=== PATIENT | male | born 1980 | race Caucasian/White ===

== ENCOUNTER 2019-01-08 09:40 | Emergency (ER) | payer BC ==
[2019-01-08] MEDS ORDERED: NS 0.9% 1000 ML** 1,000 ML IV ONE (10:01)
--- NOTE | 2019-01-08 10:04 | ED ---
Complex/Multi-Sys Presentation - HPI Summary HPI Summary: The pt is a 38 yr old male presenting to [facility] c/o fever and cough beginning 2 days [employer]. He states that he feels like he got hit by a truck and had a fever of 101.8 F last night. He has had several colds recently and was diagnosed with walking pneumonia several days [employer] and was given Zithromax. He has not been feeling well for the past couple of months. He rates his current pain severity a 3/10. No aggravating or alleviating factors noted. He also reports left testicle enlargement and tenderness, and diaphoresis but denies any rhinnorhea, penile discharge, or burning. He does not smoke or use recreational drugs, but occasionally drinks beer. He is but states that he is not very sexually active. - History Of Current Complaint Chief Complaint: EDGeneral Time Seen by Provider: 01/08/19 09:53 Hx Obtained From: Patient Onset/Duration: Sudden Onset, Lasting Days, Still Present Timing: Constant, Days Severity Currently: Mild Severity Initially: Mild Aggravating Factor(s): nothing Alleviating Factor(s): nothing Associated Signs And Symptoms: Positive: Cough, Fever, Diaphoresis, Other - pos - left testicle enlargement and tenderness, neg - burning, penile discharge, rhinnorhea - Allergies/Home Medications Allergies/Adverse Reactions: Allergies Allergy/AdvReac Type Severity Reaction Status Date / Time Penicillins Allergy Anaphylatic Verified 01/08/19 09:45 Shock PMH/Surg Hx/FS Hx/Imm Hx Sensory History: Denies: Hx Legally Blind, Hx Deafness Opthamlomology History: Denies: Hx Legally Blind EENT History: Denies: Hx Deafness - Surgical History Surgical History: None Surgery Procedure, Year, and Place: none Infectious Disease History: No Infectious Disease History: Denies: Traveled Outside the [place] in Last 30 Days - Family History Known Family History: Negative: Renal Disease - Social History Lives: With Family Alcohol Use: Occasionally - beer Hx Substance Use: No Substance Use Type: Reports: None Hx Tobacco Use: No Review of Systems Positive: Fever, Skin Diaphoresis Negative: Nasal Discharge Positive: Cough Genitourinary: Other - pos - left testicle enlargement and tenderness Negative: burning, discharge All Other Systems Reviewed And Are Negative: Yes Physical Exam - Summary Physical Exam Summary: VITAL SIGNS: Reviewed. GENERAL: Patient is a well-developed and nourished male who is lying comfortable in the stretcher. Patient is not in any acute respiratory distress. HEAD AND FACE: No signs of trauma. No ecchymosis, hematomas or skull depressions. No sinus tenderness. EYES: PERRLA, EOMI x 2, No injected conjunctiva, no nystagmus. EARS: Hearing grossly intact. Ear canals and tympanic membranes are within normal limits. MOUTH: Oropharynx within normal limits. NECK: Supple, trachea is midline, no adenopathy, no JVD, no carotid bruit, no c- spine tenderness, neck with full ROM. CHEST: Symmetric, no tenderness at palpation. LUNGS: Clear to auscultation bilaterally. No wheezing or crackles. CVS: Regular rate and rhythm, S1 and S2 present, no murmurs or gallops appreciated. ABDOMEN: Soft, non-tender. No signs of distention. No rebound, no guarding, and no masses palpated. Bowel sounds are normal. EXTREMITIES: FROM in all major joints, no edema, no cyanosis or clubbing. NEURO: Alert and oriented x 3. No acute neurological deficits. Speech is normal and follows commands. SKIN: Dry and warm. : The left testicle is enlarged, tender, no masses, positive cremasteric reflex, penis is circumcised with no discharge. Triage Information Reviewed: Yes Vital Signs On Initial Exam: Initial Vitals Temp Pulse Resp BP Pulse Ox 96.7 F 80 16 135/81 100 01/08/19 09:41 01/08/19 09:41 01/08/19 09:41 01/08/19 09:41 01/08/19 09:41 Vital Signs Reviewed: Yes Procedures - Sedation Patient Received Moderate/Deep Sedation with Procedure: No Diagnostics - Vital Signs Vital Signs Temp Pulse Resp BP Pulse Ox 01/08/19 09:41 96.7 F 80 16 135/81 100 - Laboratory Result Diagrams: 01/08/19 10:41 01/08/19 10:41 Lab Statement: Any lab studies that have been ordered have been reviewed, and results considered in the medical decision making process. - Radiology CXR Radiology Interpretation Completed By: Radiologist Summary of Radiographic Findings: IMPRESSION: NO EVIDENCE FOR ACTIVE CARDIOPULMONARY DISEASE. ED Physician has reviewed this report. - Ultrasound Testicular US Ultrasound Interpretation Completed By: Radiologist Summary of Ultrasound Findings: IMPRESSION: 1. FINDINGS MOST CONSISTENT WITH LEFT EPIDIDYMAL ORCHITIS. 2. LEFT VARICOCELE. ED Physician has reviewed this report. - EKG 1005 Cardiac Rate: NL EKG Rhythm: Sinus Rhythm - 73 bpm Summary of EKG Findings: EKG @ 1005 reveals NSR @ [address] elevation. Normal axis. Complex Multi-Symp Course/Dx Assessment/Plan: Patient is a 38-year-old male who presents to the emergency department with a chief complaint of productive cough, fevers and left testicular pain. Blood test results without any significant abnormality except for hemoglobin 13.9, HCT 41, CRP of 64.9,and urinalysis negative for UTI. Chest x-ray impression: No evidence for active cardiopulmonary disease. Patient declined IV fluids. Testicular ultrasound impression: Findings most consistent with a left epididymal orchitis. Left varicocele he. In the ED course the patient was given ceftriaxone and azithromycin. Patient agrees to take antibiotics even though he says that he is in a monogamous relationship. We will send a urine for GC and chlamydia. I discussed all the findings and test results with the patient. Patient was instructed to return to the emergency room immediately if any of the symptoms return worsens. Plan of care was discussed with the patient and understands and agrees. All questions were answered at patient satisfaction. There were no further complaints or concerns. Lung exam before discharge: CTA B/L. Good air exchange. No wheezing or crackles heard. CVS: S1 and S2 present. No murmurs appreciated. Patient is alert and oriented x 3. Patient is hemodynamically stable. Patient will be discharged home with follow up PCP in the next 2-3 days - Diagnoses Provider Diagnoses: URI (upper respiratory infection), Orchitis of left testicle Discharge ED - Sign-Out/Discharge Documenting (check all that apply): Patient Departure - discharge - Discharge Plan Condition: Stable Disposition: HOME Patient Education Materials: Urinary Tract Infection in Men (ED), Orchitis (ED) Referrals: Fabio Squires MD [Primary Care Provider] - 3 Days Additional Instructions: FOLLOW UP WITH YOUR PRIMARY CARE PROVIDER WITHIN 3 DAYS. RETURN TO THE ED FOR ANY WORSENING OR NEW SYMPTOMS. - Billing Disposition and Condition Condition: STABLE Disposition: Home - Attestation Statements Document Initiated by Scribe: Yes Documenting Scribe: Yohan De La Cruz Provider For Whom Scribe is Documenting (Include Credential): Neel Ramires MD Scribe Attestation: I, Yohan Dorothy, scribed for Neel Ramires MD on 01/08/19 at 1828. Scribe Documentation Reviewed: Yes Provider Attestation: The documentation as recorded by the scribe, Yohan De La Cruz accurately reflects the service I personally performed and the decisions made by me, Neel Ramires MD Status of Scribe Document: Viewed
--- OUTSIDE RECORDS SUMMARY | 2019-01-08 10:29 | XMS REPORT | Continuity of Care Document ---
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 Inactive: 09/27/2018 Social History Type Date Description Comments Sex Unknown Tobacco Use Start: Unknown End: Unknown Patient is a former smoker Smoking Status Reviewed: 11/23/18 Patient is a former smoker Allergies, Adverse Reactions, Alerts Active Allergies Reaction Severity Comments Date Penicillin No Reaction Indicated 11/19/2018 Medications Active Medications SIG Qnty Indications Ordering Provider Date Zithromax Z-Dinesh take 2 tabs by 6tabs D64.9 RAMIRO Rivera 12/21/2018 250mg mouth on the Tablets first day then 1 tab by mouth for the next 4 days History Medications DTaP Vaccine Younger Than 7 (Infanrix) Unknown - 07/30/2017 Injection Immunizations CPT Code Status Date Vaccine Lot # [id number] Refused 07/30/2017 Tdap - Boostrix/Adacel [id number] Refused 07/30/2017 Influenza Virus Vaccine, Quadrivalent, Split, Im Use 0.25ML Vital Signs Date Vital Result Comment 12/21/2018 1:14pm BP Systolic 104 mmHg BP Diastolic 78 mmHg Heart Rate 73 /min Body Temperature 97.8 F O2 % BldC Oximetry 98 % 11/23/2018 2:50pm BP Systolic 110 mmHg BP Diastolic 70 mmHg Height 72 inches 6'0" Weight 213.00 lb Heart Rate 75 /min Body Temperature 98.1 F O2 % BldC Oximetry 95 % BMI (Body Mass Index) 28.9 kg/m2 Results Description No Information Available Procedures Description No Information Available Medical Devices Description No Information Available Encounters Type Date Location Provider Dx Diagnosis Office Visit 12/21/2018 1:15p [facility] RAMIRO Rivera D64.9 Anemia, unspecified B99.9 Unspecified infectious disease Office Visit 11/23/2018 3:00p [facility] Bethany Faith, [facility] J06.9 Acute upper respiratory infection, unspecified Z68.28 Body mass index (BMI) 28.0-28.9, adult Assessments Date Code Description Provider 12/21/2018 D64.9 Anemia, unspecified Bethany Faith, [facility] 12/21/2018 B99.9 Unspecified infectious disease Bethany Faith, [facility] 11/23/2018 J06.9 Acute upper respiratory infection, unspecified Bethany Faith, [facility] 11/23/2018 Z68.28 Body mass index (BMI) 28.0-28.9, adult Bethany Faith [employer] Plan of Treatment 12/21/2018 - Bethany FaithQUENTINPD64.9 Anemia, unspecifiedNew Medication:Zithromax Z- Dinesh 250 mg - take 2 tabs by mouth on the first day then 1 tab by mouth for the next 4 daysNew Labs:CBC [employer] Charge, Ordered: 12/21/18Comments:dsicussed he was slightly anemic last year requesting to be retested CBC sent to lab- will cll with cfotfflH84.9 Unspecified infectious diseaseComments:discussed rhonchi and decraeased lung sounds will treat for clinical penumonia with zithromaxincrease fluids and rest take acetminophen or ibuprofen for fever and pain return if no improvement and as needed Functional Status Description No Information Available Mental Status Description No Information Available Referrals Description No Information Available
[2019-01-08 10:54] LABS: ABS Eosinophils 0.2 10^3/ul (0-0.6); ABS Lymphocytes 1.2 10^3/ul (1.0-4.8); ABS Monocytes 0.8 10^3/ul (0-0.8); ABS Neutrophils 5.4 10^3/ul (1.5-7.7); Eosinophil % 2.9 %; Hematocrit 41 % (42-52); Hemoglobin 13.9 g/dL (14.0-18.0); Lymphocyte % 16.1 %; Mean Corpuscular HGB Conc 34 g/dL (31-36); Mean Corpuscular Hemoglobin 31 pg (27-31); Mean Corpuscular Volume 91 fL (80-94); Nucleated Red Blood Cells % 0.1; Platelet Count 235 10^3/uL (150-450); Red Blood Count 4.45 10^6 /uL (4.18-5.48); Red Cell Distribution Width 12 % (10-15); White Blood Count 7.7 10^3/uL (3.5-10.8)
[2019-01-08 11:10] LABS: Albumin 4.2 g/dL (3.2-5.2); Albumin/Globulin Ratio 1.4 (1-3); C Reactive Protein 64.94 mg/L (<8.01); Calcium 9.5 mg/dL (8.6-10.3); EGFR African American 129.5 (>60); EGFR Non-African American 107.1 (>60); Globulin 3.1 g/dL (2-4); Potassium 3.9 mmol/L (3.5-5.0); Total Bilirubin 0.6 mg/dL (0.2-1.0); Total Protein 7.3 g/dL (6.4-8.9)
[2019-01-08 11:16] LABS: Urine Appearance Clear; Urine Bilirubin Negative (Negative); Urine Blood Negative (Negative); Urine Color Straw; Urine Glucose Negative (Negative); Urine Ketones Negative (Negative); Urine Nitrite Negative (Negative); Urine Protein Negative (Negative); Urine Specific Gravity 1.003 (1.010-1.030); Urine Urobilinogen Negative (Negative)
[2019-01-08] MEDS ORDERED: Azithromycin TAB* 250 MG PO ONE (13:08)
[2019-01-08] MEDS ORDERED: Lidocaine 1% MPF ** 5 ML VIAL IM ONE (13:08)
[2019-01-08] MEDS ORDERED: cefTRIAXone VIAL(*) 250 MG VIAL IM ONE (13:08)
[2019-01-08 13:57] VITALS: BP 136/84
== END 2019-01-08 13:50 | disposition home or self-care (01) ==
LOC: ED 09:40
DX: J06.9 Acute upper respiratory infection, unspecified (principal); N45.2 Orchitis; Z88.0 Allergy status to penicillin
CPT/HCPCS: 36415; 71046; 76870; 80053; 81003; 85025; 86140; 93005; 96372; 99283; A9270-GY; J0696